=== PATIENT | female | born 1995 | race Caucasian/White ===

== ENCOUNTER 2017-10-02 00:39 | Emergency (ER) | payer MEDICAID, OTHER ==
[2017-10-02] MEDS: ONDANSETRON (ODT) 4 MG TAB ODT (04:27)
[2017-10-02] MEDS: ACETAMINOPHEN 325 MG TAB PO (04:27)
[2017-10-02 04:49] LABS: ADD UMIC YES; UR ASCORBIC ACID NEGATIVE (NEGATIVE); UR BACTERIA MODERATE /HPF (NONE SEEN); UR BILIRUBIN (Dip) NEGATIVE (NEGATIVE); UR BLOOD (Dip) 2+ mg/dL (NEGATIVE); UR CLARITY SLIGHTLY CLOUDY (CLEAR); UR COLOR YELLOW (YELLOW); UR GLUCOSE (Dip) NEGATIVE (NEGATIVE); UR KETONES (Dip) 1+ mg/dL (NEGATIVE); UR LEUKOCYTE ESTERASE (Dip) 3+ Leu/ul (NEGATIVE); UR NITRITE (Dip) NEGATIVE (NEGATIVE); UR RBC 5 /HPF (0-5); UR SQUAMOUS EPITHELIAL CELL FEW /HPF (FEW); UR TOTAL PROTEIN (Dip) NEGATIVE (NEGATIVE); UR UROBILINOGEN (Dip) NEGATIVE (NEGATIVE); UR WBC > 182 /HPF (0-5)
[2017-10-02] MEDS: CEFTRIAXONE 1 GM INJ IM (05:09)
[2017-10-02] MEDS: LIDOCAINE 2% (MDV) 20 ML INJ INJ (05:10)
== END 2017-10-02 05:26 | disposition home or self-care (01) ==
LOC: FTE 00:39
DX: N12 Tubulo-interstitial nephritis, not specified as acute or chronic (principal)
CPT/HCPCS: 81001; 81025; 96372; 99284-25